=== PATIENT | female | born 1990 | race Caucasian/White ===

== ENCOUNTER 2019-06-01 19:32 | Emergency (ER) | payer OTHER ==
[~2019-06-01] VITALS: Ht 157.5 cm; Wt 73.0 kg
[2019-06-01 20:00] VITALS: Ht 157.5 cm; Wt 73.0 kg
[2019-06-01 23:04] VITALS: BP 106/89
== END 2019-06-01 23:04 | disposition home or self-care (01) ==
LOC: ED 19:32
DX: G51.0 Bell's palsy (principal)

== ENCOUNTER 2019-07-01 18:30 | Emergency (ER) | payer OTHER | END 2019-07-01 19:12 | disposition left against medical advice (07) | LOC: ED 18:30 | DX: Z53.21 Procedure and treatment not carried out due to patient leaving prior to being seen by health care provider (principal) ==

== ENCOUNTER 2019-11-28 10:32 | Emergency (ER) | payer MEDICAID ==
[~2019-11-28] VITALS: Ht 157.5 cm; Wt 69.6 kg
[2019-11-28 10:46] VITALS: Ht 157.5 cm; Wt 69.6 kg
[2019-11-28 12:09] VITALS: BP 111/79
== END 2019-11-28 12:20 | disposition home or self-care (01) ==
LOC: ED 10:32
DX: R05 Cough (principal); R50.9 Fever, unspecified; R07.89 Other chest pain; Z90.89 Acquired absence of other organs; Z98.890 Other specified postprocedural states

== ENCOUNTER 2019-12-25 19:24 | Emergency (ER) | payer MEDICAID ==
[~2019-12-25] VITALS: Ht 157.5 cm; Wt 68.9 kg
[2019-12-25 19:35] VITALS: Ht 157.5 cm; Wt 68.9 kg
[2019-12-26 00:27] VITALS: BP 116/80
[2019-12-29 05:08] LABS: RAPID PLASMA REAGIN Reactive (Non Reactive)
== END 2019-12-26 00:27 | disposition home or self-care (01) ==
LOC: ED 19:24
PROVIDERS: Emergency Medicine
DX: Z11.3 Encounter for screening for infections with a predominantly sexual mode of transmission (principal)